=== PATIENT | female | born 1970 | race Caucasian/White ===

== ENCOUNTER 2016-08-19 21:24 | Emergency (ER) | payer BC ==
[~2016-08-19] VITALS: Ht 167.6 cm; Wt 115.3 kg
[~2016-08-19 21:24] MED LIST: ACETAMINOPHEN-1 EAC1 PO; ERGOCALCIF50000 UNIT PO; FIBER GUMMIES2.5 GM PO; FLEXERIL10 MG PO; HYDROXYCHLOROQ200 MG PO; MACROBID100 MG PO; MELOXICAM15 MG PO; MIRALAX17 GM PO; MOTRIN800 MG PO; MULTIVITAMINS1 EAC2 PO; PERCOCET 5/31 TABLET PO; PREDNISONE50 MG PO; PROTONIX40 MG PO; TOPAMAX100 MG PO; TRAMADOL HCL50 MG PO; VITAMIN C; ZITHROMAX250 MG PO; ZOFRAN4 MG PO
[2016-08-19 21:48] LABS: MCH 30.9 PG (29.0-34.0); MCHC 33.3 G/DL (30.0-36.0); MCV 92.8 FL (83-99); MEAN PLAT.VOLUME 9.6 uM^3 (9.5-12.4); PLATELET COUNT 319 K/uL (156-360); RBC DIS.WIDTH-CV 12.5 % (11.8-14.6); RBC DIS.WIDTH-SD 42.7 % (39-53); RED BLOOD COUNT 4.31 M/uL (3.80-5.20); WHITE BLOOD COUNT 9.7 K/uL (4.1-10.2)
[2016-08-19 22:02] LABS: CHLORIDE 109 mEq/L (99-109); POTASSIUM 4.8 mEq/L (3.7-5.4); SODIUM 142 mEq/L (136-147)
[2016-08-19 22:03] LABS: GLUCOSE 121 mg/dL (70-99)
[2016-08-19 22:05] LABS: ANION GAP 8 MEQ/L (2-14)
[2016-08-19 22:07] LABS: GFR ESTIMATE (CALCULATED) 57 mL/min/
[2016-08-19 22:08] LABS: UREA NITROGEN (BUN) 10 mg/dL (9-23)
[2016-08-19 22:14] LABS: TROP-I INTERPRETATION NEGATIVE; TROPONIN-I < 0.01 ng/mL (0.0-0.30)
[2016-08-20 00:42] LABS: TROP-I INTERPRETATION NEGATIVE; TROPONIN-I < 0.01 ng/mL (0.0-0.30)
[2016-08-20 01:55] VITALS: BP 115/91
== END 2016-08-20 01:55 | disposition home or self-care (01) ==
LOC: EME 21:24
PROVIDERS: Physician Assistant Medical
DX: R07.89 Other chest pain (principal); M25.512 Pain in left shoulder; M79.602 Pain in left arm; M54.2 Cervicalgia; R06.00 Dyspnea, unspecified; R20.0 Anesthesia of skin; Z90.49 Acquired absence of other specified parts of digestive tract
CPT/HCPCS: 71020; 71275; 73030; 80048; 84484; 84702; 85027; 93005; 99281; 99285

== ENCOUNTER 2016-11-29 17:07 | Emergency (ER) | payer BC ==
[~2016-11-29] VITALS: Ht 170.2 cm; Wt 102.4 kg
[2016-11-29 17:53] LABS: HEMATOCRIT 42.1 % (36.0-46.0); MCH 31.3 PG (29.0-34.0); MCHC 33.7 G/DL (30.0-36.0); MCV 92.7 FL (83-99); MEAN PLAT.VOLUME 10.5 uM^3 (9.5-12.4); PLATELET COUNT 300 K/uL (156-360); RBC DIS.WIDTH-CV 12.4 % (11.8-14.6); RBC DIS.WIDTH-SD 42.3 % (39-53); RED BLOOD COUNT 4.54 M/uL (3.80-5.20); WHITE BLOOD COUNT 6.5 K/uL (4.1-10.2)
[2016-11-29 18:05] LABS: CHLORIDE 108 mEq/L (99-109); SODIUM 140 mEq/L (136-147)
[2016-11-29 18:07] LABS: GLUCOSE 95 mg/dL (70-99)
[2016-11-29 18:08] LABS: ANION GAP 9 MEQ/L (2-14)
[2016-11-29 18:09] LABS: TOTAL BILIRUBIN 0.7 mg/dL (0.0-1.0)
[2016-11-29 18:10] LABS: ALKALINE PHOSPHATASE 75 IU/L (3-129)
[2016-11-29 18:11] LABS: GFR ESTIMATE (CALCULATED) > 59 mL/min/
[2016-11-29 18:12] LABS: DIRECT BILIRUBIN 0.3 mg/dL (0.0-0.3); UREA NITROGEN (BUN) 12 mg/dL (9-23)
[2016-11-29 18:14] LABS: LIPASE 101 U/L (1.0-51.0)
[2016-11-29] MEDS ORDERED: ZANTAC150 MG PO (20:34)
[2016-11-29] MEDS ORDERED: PERCOCET 5/31 TABLET PO (20:34)
[2016-11-29] MEDS ORDERED: ZOFRAN4 MG PO (20:47)
[2016-11-29 21:23] VITALS: BP 116/82
== END 2016-11-29 21:24 | disposition home or self-care (01) ==
LOC: EME 17:07
PROVIDERS: Emergency Medicine
DX: R10.9 Unspecified abdominal pain (principal); E86.0 Dehydration; K21.9 Gastro-esophageal reflux disease without esophagitis; Z98.84 Bariatric surgery status; Z90.710 Acquired absence of both cervix and uterus; Z90.49 Acquired absence of other specified parts of digestive tract; Z88.6 Allergy status to analgesic agent
CPT/HCPCS: 71020; 74176; 80048; 80076; 83690; 85027; 99281; 99284

== ENCOUNTER 2017-06-14 09:23 | Emergency (ER) | payer BC ==
[~2017-06-14] VITALS: Ht 170.2 cm; Wt 88.1 kg
[~2017-06-14 09:23] MED LIST changes: +ZANTAC150 MG PO
[2017-06-14] MEDS ORDERED: LIDODERM 5% P1 PATCH TD (11:30)
[2017-06-14] MEDS ORDERED: DELTASONE20 M1 PO (11:30)
[2017-06-14 11:47] VITALS: BP 114/68
== END 2017-06-14 11:48 | disposition home or self-care (01) ==
LOC: EME 09:23
DX: S49.92XA Unspecified injury of left shoulder and upper arm, initial encounter (principal); X58.XXXA Exposure to other specified factors, initial encounter; M45.9 Ankylosing spondylitis of unspecified sites in spine; Z87.891 Personal history of nicotine dependence
CPT/HCPCS: 73030; 99281; 99284; J7512

== ENCOUNTER 2017-10-24 07:00 | Day surgery (SDC) | payer BC ==
[~2017-10-24] VITALS: Ht 170.2 cm; Wt 86.1 kg
[~2017-10-24 07:00] MED LIST changes: +COSENTYX P150 MG/11 SC; +DELTASONE20 M1 PO; +LIDODERM 5% P1 PATCH TD; +MEDICAL MARIJUANA PO; +PANTOPRAZOLE SO40 MG PO; +VITAMIN D31000 UNIT PO; +XYZAL5 MG PO
[2017-10-24 08:35] VITALS: BP 104/72
[2017-10-24 12:46] VITALS: BP 116/71
[2017-10-24 13:24] VITALS: BP 134/76
[2017-10-24 14:09] VITALS: BP 109/68
== END 2017-10-24 14:14 | disposition home or self-care (01) ==
LOC: SDC 07:00
DX: D17.21 Benign lipomatous neoplasm of skin and subcutaneous tissue of right arm (principal); D17.20 Benign lipomatous neoplasm of skin and subcutaneous tissue of unspecified limb; D17.79 Benign lipomatous neoplasm of other sites; J45.909 Unspecified asthma, uncomplicated; E78.5 Hyperlipidemia, unspecified; K21.9 Gastro-esophageal reflux disease without esophagitis; M79.7 Fibromyalgia; Z87.891 Personal history of nicotine dependence
CPT/HCPCS: 88304; J0131; J0690; J1170; J2250; J3010